=== PATIENT | female | born 1965 | race Caucasian/White ===

== ENCOUNTER 2020-12-28 19:46 | Observation (INO) ==
--- NOTE | 2020-12-28 20:05 | DR.DING ---
HPI Time Seen Time Seen by Provider: 12/28/20 20:04 HPI Comment HPI Comment: PATIENT WAS IN PAIN AND TOOK OPIATES, PRESCRIBE TO SOMEONE ELSE. SHE BECAME ON RESPONSIVE. WHEN EMS GOT TO PATIENT, SHE WAS NOT BREATHING AND HEART STOP. SHE WAS GIVEN OXYGEN AND CHEST COMPRESION AND NARCAN. SHE BECAME RESPONSIVE WAS TALKING BUT SLEEPY. IN ER PATIENT WILL WAKE UP AND ANSWER QUESTIONS APPROPIATELY. SHE DENIES SUICIDAL OR HOMICIDAL IDEATION. HAVING PAIN LEFT LOWER RIB AND CHEST AREA. SLIGHT NAUSEA. HISTORY COPD. Complaint Chief Complaint Doctors Comments: DRUG OVERDOSE. COVID-19 Coronavirus risk:travel/contact w/high risk person: No Has patient experienced Coronavirus symptoms: No Reviewed Nurses Notes Review: Yes Source History Provided: Patient Mode of Arrival Mode of Arrival: Ambulatory Context Ingestion: Accidental Type of drug ingested: OPIATE. Amount of drug ingested: UNKOWN. Expresses: None Stressors: Family History of: None Severity Severity: Moderate Associated signs and symptoms Associated signs and symptoms: Nausea and Other (NONE OF THE ABOVE.) PMH PMH Past Medical History: COPD Past Surgical History: Yes Surgical History: Family History Family Medical History: Diabetes Mellitus Social History Do you use any recreational Drugs:: No ROS Review of Systems Constitutional: See HPI, Weakness and Other (SLEEPY ); negative Fever Eyes: No Symptoms Reported and See HPI; negative Blurred Vision and Diplopia ENTM: No Symptoms Reported and See HPI; negative Nose Discharge and Nose Congestion Respiratoy: See HPI and Short of Breath; negative Moist Cough and Wheezing Cardiovascular: Chest Pain; negative See HPI and Edema Gastrointestinal/Abdominal: See HPI and Nausea; negative Abdominal Pain, Diarrhea and Vomiting Genitourinary: No Symptoms Reported and See HPI; negative Dysuria, Frequency and Hematuria Neurological: See HPI and Weakness; negative Headache and Dizziness Musculoskeletal: See HPI, Chest wall and Rib(s); negative Muscle Pain Integumentary: No Symptoms Reported and See HPI; negative Change in Color, Rash and Juandice Hematologic/Lymphatic: No Symptoms Reported and See HPI; negative Easy Bruising and Swollen Glands Endocrine: No Symptoms Reported and See HPI; negative Increased Thirst and Increased Urine Psychiatric: No Symptoms Reported and See HPI All Other Systems: Reviewed and Negative PE Vital signs Vitals: Temperature 97.6 F Pulse Rate [Left Radial] 79 Pulse Rate 87 Respiratory Rate 27 Blood Pressure [Right Arm] 160/79 Blood Pressure [Left Arm] 105/72 Blood Pressure 161/81 O2 Sat by Pulse Oximetry 99 General Limitations: No Limitations and Other (SLEEPY BUT AROUSABLE.) General Appearance: Alert and In No Apparent Distress Head Head Exam: Normal Inspection and Atraumatic Eyes Eye exam: Normal Appearance, PERRL and EOMI; negative Scleral Icterus and Conjunctival Injection Pupils: Regular, Round: Bilateral and Reactive: Bilateral Sclera/Conjunctival: Normal Inspection: Bilateral ENT ENT Exam: Normal Exam, Normal Oropharynx, Normal External Ear Exam and TM's Normal Bilaterally Neck Neck Exam: Normal Inspection and Trachea Midline; negative Tenderness and Lymphadenopathy Chest Chest Inspection: Normal Inspection, Symmetric Chest Wall Rise and Tenderness (CHEST WALL TENDERNESS, LEFT LOWER CHEST.) Respiratory Respiratory Exam: Normal Lung Sounds Bilat and Chest Wall Tenderness (LEFT LOWER CHEST TENDERNESS.); negative Accessory Muscle Use and Respiratory Distress Respiratory Exam: Bilateral: Rhonchi and Lower: Rhonchi Cardiovascular Cardiovascular Exam: Regular Rate, Normal Rhythm and Normal Heart Sounds; negative Systolic Murmur and Diastolic Murmur Abdominal Exam Abdominal Exam: Normal Inspection, Normal Bowel Sounds and Soft; negative Te nderness Extremities Extremities Exam: Normal Inspection and Normal Capillary Refill; negative Tenderness, Edema and Calf Tenderness Back Back Exam: Paraspinal Tenderness; negative (R) CVA Tenderness and (L) CVA Tenderness Neurologic Neurological Exam: Alert, Oriented X3, CN II-XII Intact and Other (SLEEPY BUT AROUSABLE.); negative Motor Sensory Deficit Patient Oriented To: Person, Place and Time Speech: negative Fluid Speech (SLOW) Cranial Nerve Exam: EOM Function (II, III, IV, ): Normal, Facial Sensation (V): Normal, Facial Palsy (VII): Normal, Gag reflex (XI): Normal and Tongue Deviation: Normal Motor Strength - LUE: 5/5 Motor Strength - RUE: 5/5 Motor Strength - LLE: 5/5 Motor Strength - RLE: 5/5 Upper Motor Neuron Exam: Babinski Sign: Normal Psychiatric Psychiatric Exam: Normal Affect, Normal Mood and Flat Affect Expanded Psychiatric Exam: Poor Eye Contact Skin Skin Exam: Warm, Dry, Intact and Normal Color MDM Differential Diagnosis Differential Diagnosis: Accidental drug overdose and Substance abuse (CHEST WALL PAIN, CHEST PAIN.) COURSE Treatment Treatment: SEE ORDERS. NS 1L IV BOLUS, ROCEPHIN 1GM IVPB, IN ER. PATIENT OBSE RVED FOR SEVERAL HOURS IN ER UNTILL FULLY ALERT PER RECOMMENDATION OF [facility] CONTROL. Consultation Consultation Comments: CONSULT [facility] CONTROL. SEE NURSING NOTE. DISCUSS PATIENT WITH DR. JEAN, HE WILL ADMIT PATIENT. Education/Counseling Education/Counseling: Patient Educated On: Diagnosis ROR Labs Reviewed Laboratory Results Reviewed?: Yes Result Diagrams: 12/30/20 04:58 12/30/20 04:58 Laboratory: 12/29/20 08:00 Blood Blood Culture - Preliminary 12/29/20 07:53 Blood Blood Culture - Preliminary WBC 12.2 X10^3/uL (3.6-10.0) H 12/29/20 06:30 RBC 4.32 X10^6/uL (3.5-5.4) 12/29/20 06:30 Hgb 12.7 g/dL (12.0-16.0) 12/29/20 06:30 Hct 39.0 % (36.0-47.0) 12/29/20 06:30 MCV 90.2 fL (80.0-100.0) 12/29/20 06:30 MCH 29.4 pg (27.0-34.0) 12/29/20 06:30 MCHC 32.6 g/dL (33.0-35.0) L 12/29/20 06:30 RDW 14.3 % (11.6-16.5) 12/29/20 06:30 Plt Count 269 X10^3/uL (150.0-450.0) 12/29/20 06:30 MPV 7.6 fL (7.4-11.0) 12/29/20 06:30 Neut % (Auto) 57.3 % (42.0-75.0) 12/29/20 06:30 Lymph % (Auto) 27.5 % (21.0-51.0) 12/29/20 06:30 [facility] % (Auto) 12.5 % (0.0-13.0) 12/29/20 06:30 Eos % (Auto) 2.2 % (0.9-2.9) 12/29/20 06:30 Baso % (Auto) 0.5 % (0.2-1.0) 12/29/20 06:30 Neut # (Auto) 7.0 x10^3/uL (2.2-4.8) H 12/29/20 06:30 Lymph # (Auto) 3.4 X10^3/uL (1.3-2.9) H 12/29/20 06:30 [facility] # (Auto) 1.5 x10^3/uL (0.3-0.8) H 12/29/20 06:30 Eos # (Auto) 0.3 x10^3/uL (0.0-0.2) H 12/29/20 06:30 Baso # (Auto) 0.1 X10^3/uL (0.0-0.1) 12/29/20 06:30 Absolute Nucleated RBC 0.1 /100WBC 12/29/20 06:30 Sample Site Rr 12/28/20 21:08 ABG pH 7.260 (7.35-7.45) L 12/28/20 21:08 ABG pCO2 61.0 mmHg (35.0-45.0) H* 12/28/20 21:08 ABG pO2 90.0 mmHg (80.0-100.0) 12/28/20 21:08 ABG HCO3 27.4 mmol/L (22-26) H 12/28/20 21:08 ABG O2 Saturation 96.0 % (90-100) 12/28/20 21:08 ABG Base Excess -0.8 mmol/L (-2.0-2.0) 12/28/20 21:08 [place] Test Pos 12/28/20 21:08 A-a Gradient -17.0 mmHg 12/28/20 21:08 FiO2 21.0 12/28/20 21:08 Blood Gas Comments [place] well sw 12/28/20 21:08 Sodium 143 mmol/L (136-145) 12/29/20 06:30 Corrected Sodium TNP 12/29/20 06:30 Potassium 4.4 mmol/L (3.5-5.1) 12/29/20 06:30 Chloride 110 mmol/L (98-107) H 12/29/20 06:30 Carbon Dioxide 24.1 mmol/L (21-32) 12/29/20 06:30 BUN 8 mg/dL (7-18) 12/29/20 06:30 Creatinine 0.79 mg/dL (0.55-1.02) 12/29/20 06:30 Est GFR (MDRD) Af Amer > 60 (>60) 12/29/20 06:30 Est GFR (MDRD) Non-Af > 60 (>60) 12/29/20 06:30 Glucose 84 mg/dL (65-99) 12/29/20 06:30 Calcium 9.5 mg/dL (8.5-10.1) 12/29/20 06:30 Corrected Calcium 10.1 mg/dL (8.5-10.1) 12/29/20 06:30 Total Bilirubin 0.20 mg/dL (0.2-1.0) 12/29/20 06:30 AST 24 Units/L (15-37) 12/29/20 06:30 ALT 15 Units/L (12-78) 12/29/20 06:30 Alkaline Phosphatase 78 Units/L (46-116) 12/29/20 06:30 Creatine Kinase 85 Units/L (26-192) 12/29/20 06:30 CK-MB (CK-2) 3.6 ng/mL (0-4.0) 12/29/20 06:30 CK/CKMB % Calc 4.2 % (<4) 12/29/20 06:30 Troponin I 0.58 ng/mL (0-1.5) 12/29/20 06:30 Total Protein 6.6 g/dL (6.4-8.2) 12/29/20 06:30 Albumin 3.2 g/dL (3.4-5.0) L 12/29/20 06:30 Globulin 3.4 g/dL (2.5-4.5) 12/29/20 06:30 Albumin/Globulin Ratio 0.9 Ratio (1.1-2.1) L 12/29/20 06:30 Specimen Type Clean catch urine 12/28/20 23:10 Urine Color Yellow (YELLOW) 12/28/20 23:10 Urine Appearance Clear (CLEAR) 12/28/20 23:10 Urine pH 6.0 (5.0 - 8.0) 12/28/20 23:10 Ur Specific [place] 1.025 (1.000-1.030) 12/28/20 23:10 Urine Protein 3+ (NEGATIVE) 05/09/21 23:10 Urine Glucose (UA) Negative (NEGATIVE) 12/28/20 23:10 Urine Ketones Negative (NEGATIVE) 12/28/20 23:10 Urine Occult Blood 1+ (NEGATIVE) 12/28/20 23:10 Urine Nitrite Negative (NEGATIVE) 12/28/20 23:10 Urine Bilirubin Negative (NEGATIVE) 12/28/20 23:10 Urine Urobilinogen Normal (NORMAL) 12/28/20 23:10 Ur Leukocyte Esterase 1+ (NEGATIVE) 12/28/20 23:10 Urine RBC 0-2 /HPF (0-3) 12/28/20 23:10 Urine WBC 3-5 /HPF (0-5) 12/28/20 23:10 Ur Squamous Epith Cells Few /HPF (NEGATIVE) 12/28/20 23:10 Urine Bacteria Trace /HPF (NEGATIVE) 12/28/20 23:10 Urine Mucus Few /HPF (NEGATIVE) 12/28/20 23:10 Ur Culture Indicated? No/not indicated 12/28/20 23:10 Salicylates 3.2 mg/dL (2.8-20) 12/28/20 20:20 Urine Opiates Screen Negative (NEG=<300) 12/28/20 23:10 Urine Methadone Screen Negative (NEG=<300) 12/28/20 23:10 Acetaminophen 0.0 ug/mL (10-30) L 12/28/20 20:20 Ur Barbiturates Screen Negative (NEG=<200) 12/28/20 23:10 Ur Phencyclidine Scrn Negative (NEG=<25) 12/28/20 23:10 Ur Amphetamines Screen Positive (NEG=<1000) A 12/28/20 23:10 U Benzodiazepines Scrn Positive (NEG=<200) A 12/28/20 23:10 Urine Cocaine Screen Negative (NEG=<300) 12/28/20 23:10 U Marijuana (THC) Screen Negative (NEG=<50) 12/28/20 23:10 Ethyl Alcohol mg/dL < 3 mg/dL (0-19.9) 12/28/20 20:20 SARS CoV-2 RNA Rapid KATERIN Negative (NEGATIVE) 12/29/20 07:32 XRAY XRAY Interpreted by: Radiologist (REPORT NOTED AND DISCUSSED WITH PATIENT.) and Self EKG Rate: 96 [place]: Normal Rhythm: NSR Block: None Hypertrophy: None ST: Nonsp Opioid Opioid Risk Tool Age (Jigar box if 16-45): No History of Preadolescent Sexual Abuse: No Total: 0 Total Score Risk Category: Low Risk Copyright: Giv[employer] JEYSON predicting aberrant behaviors Diagnosis Discharge Problem: Chest wall pain, Abnormal cardiac enzyme level Drug overdose Qualifiers: Encounter type: initial encounter Injury intent: accidental or unintentional Qualified Code(s): T50.901A - Poisoning by unspecified drugs, medicaments and biological substances, accidental (unintentional), initial encounter Instructions Instructions: Nonspecific Chest Pain, [id number] Chronic Obstructive Pulmonary Disease, [id number]-[id number] Drug Overdose Steps to Quit Smoking Aspiration Pneumonia Forms: Excuse From Work or School Precautions for COVID19 Patient Portal Social Distancing
[2020-12-28 20:39] LABS: BASOPHILS # (AUTO) 0.1 X10^3/uL (0.0-0.1); BASOPHILS % (AUTO) 1.2 % (0.2-1.0); EOSINOPHILS # (AUTO) 0.2 x10^3/uL (0.0-0.2); EOSINOPHILS % (AUTO) 2.3 % (0.9-2.9); HEMATOCRIT 39.7 % (36.0-47.0); LYMPHOCYTES # (AUTO) 1.5 X10^3/uL (1.3-2.9); LYMPHOCYTES % (AUTO) 17.4 % (21.0-51.0); MEAN CORPUSCULAR HEMOGLOBIN 29.2 pg (27.0-34.0); MEAN CORPUSCULAR HGB CONC 32.6 g/dL (33.0-35.0); MEAN CORPUSCULAR VOLUME 89.6 fL (80.0-100.0); MEAN PLATELET VOLUME 7.5 fL (7.4-11.0); MONOCYTES # (AUTO) 0.6 x10^3/uL (0.3-0.8); MONOCYTES % (AUTO) 7.3 % (0.0-13.0); NEUTROPHILS # (AUTO) 6.3 x10^3/uL (2.2-4.8); NEUTROPHILS % (AUTO) 71.8 % (42.0-75.0); PLATELET COUNT 291 X10^3/uL (150.0-450.0); RED BLOOD COUNT 4.44 X10^6/uL (3.5-5.4); RED CELL DISTRIBUTION WIDTH 13.7 % (11.6-16.5); WHITE BLOOD COUNT 8.7 X10^3/uL (3.6-10.0)
[2020-12-28 20:42] LABS: SALICYLATE 3.2 mg/dL (2.8-20)
[2020-12-28 20:44] LABS: ALANINE AMINOTRANSFERASE 18 Units/L (12-78); ALBUMIN 3.4 g/dL (3.4-5.0); ALKALINE PHOSPHATASE 82 Units/L (46-116); ASPARTATE AMINO TRANSFERASE 18 Units/L (15-37); BLOOD UREA NITROGEN 10 mg/dL (7-18); CALCIUM 9.5 mg/dL (8.5-10.1); CARBON DIOXIDE 26.8 mmol/L (21-32); CHLORIDE 107 mmol/L (98-107); COR NA(FOR HYPERGLY) 143 mmol/L (136-145); CREATININE 1.08 mg/dL (0.55-1.02); SODIUM 142 mmol/L (136-145); eGFR NON BLACK RACES 56 (>60)
[2020-12-28 20:45] LABS: BLOOD ALCOHOL < 3 mg/dL (0-19.9)
[2020-12-28 21:26] LABS: ABG BASE EXCESS -0.8 mmol/L (-2.0-2.0); ABG HCO3 27.4 mmol/L (22-26)
[2020-12-28 21:27] LABS: ABG ALLEN TEST POS
[2020-12-28] MEDS ORDERED: NS 1000 ML 1,000 ML ONE (22:16)
[2020-12-28] MEDS ORDERED: NS 1000 ML 1,000 ML IV ONE (22:25)
[2020-12-28 23:26] LABS: BILIRUBIN,URINE NEGATIVE (NEGATIVE); BLOOD/HEMOGLOBIN,URINE 1+ (NEGATIVE); GLUCOSE, URINE NEGATIVE (NEGATIVE); KETONES,URINE NEGATIVE (NEGATIVE); LEUKOCYTE ESTERASE ,URINE 1+ (NEGATIVE); NITRITES,URINE NEGATIVE (NEGATIVE); PROTEIN,URINE 3+ (NEGATIVE); UROBILINOGEN,URINE NORMAL (NORMAL)
[2020-12-28 23:29] LABS: APPEARANCE,URINE CLEAR (CLEAR); COLOR,URINE YELLOW (YELLOW)
[2020-12-28 23:30] LABS: BACTERIA,URINE TRACE /HPF (NEGATIVE); MUCUS,URINE FEW /HPF (NEGATIVE); RBC,URINE 0-2 /HPF (0-3); SQUAMOUS EPITHELIAL CELL,UR FEW /HPF (NEGATIVE)
[2020-12-29 02:20] LABS: CKMB % 4.3 % (<4); CREATINE KINASE MB 2.9 ng/mL (0-4.0); TROPONIN I 0.35 ng/mL (0-1.5)
[2020-12-29] MEDS ORDERED: TYLENOL 325 MG TAB PO ONE ×2 (06:03→06:05)
--- NOTE | 2020-12-29 06:19 | RAD ---
HISTORYASPIRATIONSTUDYCHEST, 1 VIEWCOMPARISONNoneTECHNIQUEAP view of the chestFINDINGSCardiac and mediastinal contours are within normal limits. There are bilateral patchy multifocal airspace opacities with relative sparing of the left upper lung. No definite pleural effusion or pneumothorax.IMPRESSIONMultifocal bilateral patchy airspace opacities consistent with pneumonia.Electronically signed by: Arthur William (December 29, 2020 06:17:07)
[2020-12-29 06:46] LABS: BASOPHILS # (AUTO) 0.1 X10^3/uL (0.0-0.1); BASOPHILS % (AUTO) 0.5 % (0.2-1.0); EOSINOPHILS # (AUTO) 0.3 x10^3/uL (0.0-0.2); EOSINOPHILS % (AUTO) 2.2 % (0.9-2.9); HEMOGLOBIN 12.7 g/dL (12.0-16.0); LYMPHOCYTES # (AUTO) 3.4 X10^3/uL (1.3-2.9); LYMPHOCYTES % (AUTO) 27.5 % (21.0-51.0); MEAN CORPUSCULAR HEMOGLOBIN 29.4 pg (27.0-34.0); MEAN CORPUSCULAR HGB CONC 32.6 g/dL (33.0-35.0); MEAN CORPUSCULAR VOLUME 90.2 fL (80.0-100.0); MEAN PLATELET VOLUME 7.6 fL (7.4-11.0); MONOCYTES # (AUTO) 1.5 x10^3/uL (0.3-0.8); MONOCYTES % (AUTO) 12.5 % (0.0-13.0); NEUTROPHILS % (AUTO) 57.3 % (42.0-75.0); PLATELET COUNT 269 X10^3/uL (150.0-450.0); RED BLOOD COUNT 4.32 X10^6/uL (3.5-5.4); RED CELL DISTRIBUTION WIDTH 14.3 % (11.6-16.5); WHITE BLOOD COUNT 12.2 X10^3/uL (3.6-10.0)
[2020-12-29 07:04] LABS: CKMB % 4.2 % (<4); CREATINE KINASE MB 3.6 ng/mL (0-4.0); TROPONIN I 0.58 ng/mL (0-1.5)
[2020-12-29] MEDS ORDERED: ROCEPHIN 1 GRAM IV PREMIX 1 G/50 ML IV.SOLN. IV ONE ×2 (07:43→08:51)
[2020-12-29 08:15] LABS: ALANINE AMINOTRANSFERASE 15 Units/L (12-78); ALBUMIN 3.2 g/dL (3.4-5.0); ALKALINE PHOSPHATASE 78 Units/L (46-116); ASPARTATE AMINO TRANSFERASE 24 Units/L (15-37); BLOOD UREA NITROGEN 8 mg/dL (7-18); CALCIUM 9.5 mg/dL (8.5-10.1); CARBON DIOXIDE 24.1 mmol/L (21-32); CHLORIDE 110 mmol/L (98-107); COR CA(FOR HYPOALB) 10.1 mg/dL (8.5-10.1); CREATININE 0.79 mg/dL (0.55-1.02); SODIUM 143 mmol/L (136-145); TOTAL PROTEIN 6.6 g/dL (6.4-8.2); eGFR NON BLACK RACES > 60 (>60)
[2020-12-29 08:21] LABS: ABG ALLEN TEST POS
[2020-12-29] MEDS ORDERED: NS 1000 ML 1,000 ML ONE (08:51)
[2020-12-29] MEDS: NS 1000 ML 1,000 ML IV SCH (08:59)
[2020-12-29 11:18] LABS: CKMB % 4.1 % (<4); CREATINE KINASE MB 2.8 ng/mL (0-4.0); TROPONIN I 0.59 ng/mL (0-1.5)
[2020-12-29 11:24] LABS: ABG BASE EXCESS -0.6 mmol/L (-2.0-2.0); ABG HCO3 25.8 mmol/L (22-26)
[2020-12-29] MEDS: DUONEB 0.5 MG/3 MG (3 mL) NEB SCH ×3 (13:54→20:20)
[2020-12-29 13:58] VITALS: BMI 25.6
[2020-12-29] MEDS ORDERED: NS 1000 ML 1,000 ML IV SCH (14:08)
[2020-12-29] MEDS: ROBITUSSIN DM PO SCH ×3 (15:15→20:00)
[2020-12-29] MEDS ORDERED: PULMICORT NEB TX 0.5 MG NEB ONE (19:18)
[2020-12-29] MEDS ORDERED: TYLENOL 325 MG TAB PO PRN (19:45)
[2020-12-29] MEDS: PULMICORT NEB TX 0.5 MG NEB SCH (20:20)
[2020-12-30] MEDS: DUONEB 0.5 MG/3 MG (3 mL) NEB SCH ×3 (00:15→09:25)
[2020-12-30] MEDS: NS 1000 ML 1,000 ML IV SCH (00:33)
[2020-12-30 05:28] LABS: BASOPHILS % (AUTO) 0.4 % (0.2-1.0); EOSINOPHILS # (AUTO) 0.3 x10^3/uL (0.0-0.2); EOSINOPHILS % (AUTO) 3.8 % (0.9-2.9); HEMATOCRIT 34.2 % (36.0-47.0); HEMOGLOBIN 11.3 g/dL (12.0-16.0); LYMPHOCYTES # (AUTO) 2.6 X10^3/uL (1.3-2.9); LYMPHOCYTES % (AUTO) 36.6 % (21.0-51.0); MEAN CORPUSCULAR HEMOGLOBIN 29.5 pg (27.0-34.0); MEAN CORPUSCULAR VOLUME 89.3 fL (80.0-100.0); MEAN PLATELET VOLUME 7.7 fL (7.4-11.0); MONOCYTES # (AUTO) 0.6 x10^3/uL (0.3-0.8); MONOCYTES % (AUTO) 8.4 % (0.0-13.0); NEUTROPHILS # (AUTO) 3.5 x10^3/uL (2.2-4.8); NEUTROPHILS % (AUTO) 50.8 % (42.0-75.0); PLATELET COUNT 249 X10^3/uL (150.0-450.0); RED BLOOD COUNT 3.84 X10^6/uL (3.5-5.4); RED CELL DISTRIBUTION WIDTH 14.1 % (11.6-16.5)
[2020-12-30 05:43] LABS: ALANINE AMINOTRANSFERASE 13 Units/L (12-78); ALBUMIN 2.6 g/dL (3.4-5.0); ALKALINE PHOSPHATASE 62 Units/L (46-116); ASPARTATE AMINO TRANSFERASE 14 Units/L (15-37); BLOOD UREA NITROGEN 9 mg/dL (7-18); CALCIUM 8.8 mg/dL (8.5-10.1); CARBON DIOXIDE 26.7 mmol/L (21-32); CHLORIDE 111 mmol/L (98-107); COR CA(FOR HYPOALB) 9.9 mg/dL (8.5-10.1); CREATININE 0.76 mg/dL (0.55-1.02); MAGNESIUM 1.7 mg/dL (1.7-2.9); SODIUM 143 mmol/L (136-145); TOTAL PROTEIN 5.6 g/dL (6.4-8.2); eGFR NON BLACK RACES > 60 (>60)
--- NOTE | 2020-12-30 06:55 | RAD ---
HISTORYShortness of breathSTUDYChest AP [id number] heart is enlarged. No definite congestive heart failure is identified. Bilateral multifocal infiltrates areas of subsegmental atelectasis are present and unchanged. No pleural effusions are identified. Bony thorax is unremarkable.IMPRESSIONNo significant change from the prior examinationElectronically signed by: MIHIR AGUILAR (December 30, 2020 06:53:39)
[2020-12-30 08:35] VITALS: BP 148/73
[2020-12-30] MEDS ORDERED: ROCEPHIN 1 GRAM IV PREMIX 1 G/50 ML IV.SOLN. IV SCH (09:00)
[2020-12-30] MEDS: PULMICORT NEB TX 0.5 MG NEB SCH (09:25)
[2020-12-30] MEDS: ROBITUSSIN DM PO SCH (09:40)
[2020-12-30] MEDS ORDERED: TORADOL 30 MG VIAL IVP ONE (10:10)
[2020-12-30 10:50] LABS: CREATINE KINASE MB 1.2 ng/mL (0-4.0); TROPONIN I 0.25 ng/mL (0-1.5)
[2020-12-30] MEDS ORDERED: LOVENOX INJ 40 MG SYR SC SCH (11:00)
--- NOTE | 2021-01-06 11:53 | DR.CARTERS ---
Short Stay Summary - Admission Date Date of Admission: 12/29/20 - Discharge Date Discharge Date: 12/30/20 - Admission Diagnoses (1) Pneumonia Status: Acute (2) Drug overdose Status: Acute (3) Chest wall pain Status: Acute - Hospital Course Hospital Course: TIME SPENT ON CLINICAL ASSESSMENT, REVIEWING LABS AND IMAGING, DECISION MAKING, AND DOCUMENTATION GREATER THAN 75 MINUTES. IS A 55 YEAR OLD PATIENT OF . SHE PRESENTED TO THE ER VIA EMS WITH REPORTS OF PATIENT BEING UNRESPONSIVE, NOT BREATHING, AND WITHOUT A PULSE. FAMILY MEMBERS REPORT THAT PATIENT WAS IN PAIN, SO SHE TOOK WHAT SHE THOUGHT WAS A SUBOXONE PILL THAT A FRIEND HAD GIVEN HER. PATIENT WAS GIVEN OXYGEN AND CPR WAS PERFORMED. SHE WAS ALSO GIVEN NARCAN ENROUTE TO THE ER. ON ARRIVAL TO THE ER, PATIENT REMAINED DROWSY, BUT DID OPEN EYES AND RESPOND TO QUESTIONS APPROPRIATELY. PATIENT DENIED SUICIDAL OR HOMICIDAL IDEATION. SHE ADMITED TO PAIN IN THE LEFT LOWER RIB AND CHEST AREA. SHE ALSO REPORTED MILD NAUSEA. PATIENT HAS A PMH OF COPD AND . ON ARRIVAL TO THE ER, VITALS WERE 98.1-112-28-97%-126/82. LABS WERE OBTAINED. ABNORMAL LAB VALUES INCLUDED THE FOLLOWING: CREATININE 1.08, GLUCOSE 149, TOTAL BILI 0.10. CARDIAC ENZYMES WITHIN NORMAL LIMITS (TROPONIN 0.25). ABG OBTAINED AND REVEALED: PJ 7.260, PC02 61, P02 90, HC03 27.4, 02 SAT 96, FI02 21.0. URINALYSIS REVEALED WBC 3-5, RBC 0- 2, LEUKOCYTES 1+, BACTERIA TRACE. UDS IS POSITIVE FOR AMPHETAMINES AND BENZODIAZEPINES. COVID-19 NEGATIVE. BLOOD AND SPUTUM CULTURES WERE SET UP. EKG REVEALED: SINUS RHYTHM WITH HR 96. A CHEST XRAY WAS OBTAINED AND REVEALED: Multifocal bilateral patchy airspace opacities consistent with pneumonia. A SECOND SET OF CARDIAC ENZYMES WERE REPEATED AT 06:30. TROPONIN HAD GONE UP SLIGHTLY, 0.58, BUT STILL REMAINED WITHIN THE NORMAL LIMITS. IT WAS ALSO REPEATED AT 10:05. TROPONIN HAD ONLY GONE UP TO 0.59 THEN. SHE WAS ADMITTED TO THE HOSPITAL FOR FURTHER EVALUATION AND TREATMENT OF PNEUMONIA, CHEST WALL PAIN, AND DRUG OVERDOSE. SHE WAS STARTED ON NORMAL SALINE AT 75 ML/HR, ROCEPHIN 1G IV DAILY, ROBITUSSIN DM 10 ML PO QID, PULMICORT NEB TX BID, DUONEBS Q4H, AND TYLENOL 650MG PO Q6H PRN. ON THE MORNING FOLLOWING ADMISSION, PATIENT IS ALERT AND ORIENTED, LYING IN BED ON MORNING ROUNDS. SHE CONTINUES WITH CHEST WALL PAIN, BUT DENIES OTHER SYMPTOMS. CHEST WALL PAIN IS LIKELY RELATED TO THE CHEST COMPRESSIONS. ON EXAMINATION, HEART IS REGULAR IN RATE AND RHYTHM. BILATERAL LUNGS ARE NOTED WITH DIMINISHED LUNG SOUNDS THROUGHOUT. ABDOMEN IS ROUND, SOFT, AND NON-TENDER WITH NORMAL BOWEL SOUNDS THROUGHOUT. HER VITALS THIS MORNING ARE: 98.2-97-18-99%-148/73. LABS WERE OBTAINED. ABNORMAL LAB VALUES INCLUDED THE FOLLOWING: HGB 11.3, HCT 34.2, CHLORIDE 111, TOTAL BILI 0.10, AST 14, TOTAL PROTEIN 5.6, ALBUMIN 2.6. CARDIAC ENZYMES WITHIN NORMAL LIMITS. TROPONIN HAD DECREASED TO 0.25. BLOOD AND SPUTUM CULTURES ARE PENDING. NO CHANGES NOTED TO EKGs. CHEST XRAY OBTAINED AND REVEALED: The heart is enlarged. No definite congestive heart failure is identified. Bilateral multifocal infiltrates areas of subsegmental atelectasis are present and unchanged. No pleural effusions are identified. Bony thorax is unremarkable. PATIENT IS REQUESTING DISCHARGE HOME. WE PLANNED FOR DISCHARGE. PATIENT WAS GIVEN NEW PRESCRIPTIONS FOR CIPRO 500MG PO BID X 10 DAYS AND NAPROXEN 375MG PO BID X 10 DAYS. SHE WAS INSTRUCTED TO FOLLOW UP WITH HER PCP IN 1 WEEK. PATIENT WAS DISCHARGED HOME WITH FAMILY IN STABLE CONDITION. TIME SPENT ON CLINICAL ASSESSMENT, REVIEWING LABS AND IMAGING, DECISION MAKING, DISCHARGE INSTRUCTIONS, PREPARING DISCHARGE PAPERS, AND DOCUMENTATION GREATER THAN 75 MINUTES. - Discharge Medications Discharge Medications: Home Medication List ciprofloxacin HCl 500 mg PO BID #20 tab 12/30/20 [Rx] naproxen 375 mg PO BID PRN #20 tab 12/30/20 [Rx] Prescriptions: ciprofloxacin HCl Deonte Lai naproxen Deonte Lai - Discharge Plan Disposition: 01 HOME, SELF-CARE Condition: Stable Prescriptions: ciprofloxacin HCl 500 mg PO BID #20 tab naproxen 375 mg PO BID PRN #20 tab PRN Reason: - Follow up/Referrals Follow up/Referrals: Stephanie Corbett [STAFF PHYSICIAN] - 01/06/21 9:30 am - Instructions Instructions: Nonspecific Chest Pain, Sexy-uc-[id number], Chronic Obstructive Pulmonary Disease, [id number], Drug Overdose, Steps to Quit Smoking, Aspiration Pneumonia Additional Instructions: DIET TOLERATED. ACTIVITY TOLERATED. Forms: Excuse From Work or School, Precautions for COVID19, Patient Portal, Social Distancing
== END 2020-12-30 13:12 | disposition home or self-care (01) ==
LOC: ER 19:46 → MED/SURG 12-29 08:01 → INTOOBSV 12-29 08:01 → OBS 12-29 11:48 → ICU 12-29 12:04
PROVIDERS: ADMIT Internal Medicine; ATTEND Internal Medicine
DX: Z20.822 Contact with and (suspected) exposure to COVID-19; F10.10 Alcohol abuse, uncomplicated; R07.89 Other chest pain; J44.9 Chronic obstructive pulmonary disease, unspecified; F15.10 Other stimulant abuse, uncomplicated; R06.02 Shortness of breath; F19.10 Other psychoactive substance abuse, uncomplicated; R94.30 Abnormal result of cardiovascular function study, unspecified; T50.901A Poisoning by unspecified drugs, medicaments and biological substances, accidental (unintentional), initial encounter